=== PATIENT | female | born 1990 | race Caucasian/White ===

== ENCOUNTER 2016-08-21 21:41 | Inpatient (IN) | payer MEDICAID ==
[2016-08-21] MEDS ORDERED: STADOL IV PRN (23:07)
[2016-08-21 23:44] LABS: Hematocrit 38.1 % (30.3-42.9); Hemoglobin 12.4 gm/dl (10.1-14.3); Mean Corpuscular HGB Conc 33 % (30-34); Mean Corpuscular Hemoglobin 26 pg (28-32); Mean Corpuscular Volume 81 fl (79-97); Red Blood Count 4.71 M/mm3 (3.65-5.03)
[2016-08-21] MEDS ORDERED: LACTATED RINGERS 1,000 ML IV SCH (23:45)
[2016-08-21 23:54] LABS: Platelet Count 315 K/mm3 (140-440); White Blood Count 22.4 K/mm3 (4.5-11.0)
[2016-08-22 00:12] LABS: Alanine Aminotransferase 8 units/L (7-56)
[2016-08-22] MEDS ORDERED: ePHEDrine SULFATE ONE (00:32)
[2016-08-22] MEDS ORDERED: ePHEDrine SULFATE IV PRN ×2 (01:04→03:52)
[2016-08-22] MEDS ORDERED: NARCAN 2 MG/2 ML IV PRN (01:04)
--- NOTE | 2016-08-22 01:04 | Anesthesia Consultation ---
Anesthesia Consult and Med Hx Date of service: 08/22/16 - Airway Anesthetic Teeth Evaluation: Good ROM Head & Neck: Adequate Mental/Hyoid Distance: Adequate Mallampati Class: Class II Intubation Access Assessment: Probably Good - Cardiac Exam Cardiac Exam: RRR - Pre-Operative Health Status ASA Pre-Surgery Classification: ASA2 Proposed Anesthetic Plan: Epidural - Pulmonary Hx Asthma: Yes (childhood) COPD: No Hx Pneumonia: No - Cardiovascular System Hx Hypertension: No - Central Nervous System Hx Seizures: No Hx Psychiatric Problems: No - Endocrine Hx Renal Disease: No Hx End Stage Renal Disease: No Hx Hypothyroidism: No Hx Hyperthyroidism: No - Hematic Hx Anemia: Yes - Other Systems Hx Alcohol Use: No
[2016-08-22] MEDS ORDERED: fentaNYL-BUPIV 2 MCG/ML-0.125% 200 MCG/100 ML BAG EPIDURAL SCH (02:00)
[2016-08-22] MEDS ORDERED: PITOCin/NS 20 UNIT/1000ML DRIP 20,000 MILLIUNITS/1,000 ML BAG IV ONE (02:24)
--- NOTE | 2016-08-22 02:25 | History and Physical Report ---
History of Present Illness Date of examination: 08/22/16 Date of admission: 08/21/16 23:03 Chief complaint: Intense Labor Pains History of present illness: Early entry to care, co-managed with [facility] due to maternal obesity and a abnormal quad screen (+OSB). Past History Past Medical History: no pertinent history Past Surgical History: no surgical history Family/Genetic History: diabetes (father), hypertension (father), cancer (Father : Liver Ca ) Social history: no significant social history, single - Obstetrical History Expected Date of Delivery: 08/26/16 Actual Gestation: 39 Week(s) 3 Day(s) : 1 Medications and Allergies Allergies Allergy/AdvReac Type Severity Reaction Status Date / Time No Known Allergies Allergy Unverified 08/21/16 22:03 Active Meds: Active Medications Butorphanol Tartrate (Stadol) 2 mg IV Q2H PRN PRN Reason: Labor Pain Last Admin: 08/21/16 23:48 Dose: 2 mg Lactated Ringer's (Lactated Ringers) 1,000 mls @ 125 mls/hr IV DIRECT AGUEDA Last Admin: 08/21/16 23:49 Dose: 125 mls/hr Fentanyl/Bupivacaine/Sodium Chlor (Fentanyl-Bupiv 2 Mcg/Ml-0.125%) 200 mcg in 100 mls @ 12 mls/hr EPIDURAL TITR AGUEDA PRN Reason: Protocol Last Admin: 08/22/16 02:01 Dose: 12 mls/hr - Vital Signs Vital signs: Vital Signs Pulse Pulse Ox 147 H 80 L 08/21/16 21:50 08/21/16 21:50 Temp Pulse Resp BP Pulse Ox 97.4 F L 90 20 132/65 98 08/21/16 23:35 08/22/16 02:12 08/21/16 23:48 08/22/16 02:04 08/22/16 02:12 - Physical Exam Breasts: Positive: normal Cardiovascular: Regular rate Lungs: Positive: Clear to auscultation, Normal air movement Abdomen: Positive: normal appearance, soft, normal bowel sounds Genitourinary (Female): Positive: normal external genitalia, normal perenium Vagina: Positive: normal moisture Uterus: Positive: enlarged Anus/Rectum: Positive: normal perianal skin - Obstetrical FHR: category 1 Uterine Contraction Monitor Mode: External Cervical Dilatation: 9 (No fluid return upon AROM at 0214) Cervical Effacement Percentage: 100 station: +1 Uterine Contraction Pattern: Regular Uterine Tone Measurement Phase: Contraction Uterine Contraction Intensity: Moderate Results Result Diagrams: 08/21/16 23:35 08/21/16 23:35 Abnormal lab results 08/21/16 08/21/16 Range/Units 23:35 23:35 WBC 22.4 H (4.5-11.0) K/mm3 MCH 26 L (28-32) pg RDW 16.0 H (13.2-15.2) % Creatinine 0.6 L (0.7-1.2) mg/dL All other labs normal. Assessment and Plan A: IUP at 39 3/7 Weeks Category I Tracing Active Labor Maternal Obesity GBS Negative P: Admit to L&D per Routine Orders AROM
[2016-08-22] MEDS ORDERED: MINERAL OIL ONE (02:46)
[2016-08-22 03:50] LABS: Mucus,Urine FEW /HPF
[2016-08-22] MEDS ORDERED: BRETHINE SUB-Q PRN (03:52)
[2016-08-22] MEDS ORDERED: BRETHINE IVP PRN (03:52)
[2016-08-22] MEDS ORDERED: MINERAL OIL PO PRN (03:52)
[2016-08-22 03:53] LABS: Bilirubin,Urine NEG (Negative); Blood,Urine LG (Negative); Ketones,Urine 80 mg/dL (Negative); Leukocyte Esterase,Urine TR (Negative); Nitrite,Urine NEG (Negative); Urobilinogen,Urine < 2.0 mg/dL (<2.0)
[2016-08-22 03:54] LABS: RBC,Urine > 182.0 /HPF (0.0-6.0)
[2016-08-22] MEDS ORDERED: LANSINOH TP PRN (03:54)
[2016-08-22] MEDS ORDERED: MILK OF MAGNESIA PO PRN (03:54)
[2016-08-22] MEDS ORDERED: PHENERGAN PR PRN (03:54)
[2016-08-22] MEDS ORDERED: DULCOLAX PR PRN (03:54)
[2016-08-22] MEDS ORDERED: BENADRYL PO PRN (03:54)
[2016-08-22] MEDS ORDERED: LACTATED RINGERS 1,000 ML IV SCH (04:00)
[2016-08-22] MEDS ORDERED: SODIUM CHLORIDE FLUSH SYRINGE 10 ML IV NR (04:00)
--- NOTE | 2016-08-22 04:02 | Procedure Note ---
OB Delivery Note - Delivery Date of Delivery: 08/22/16 (0314) Surgeon: RENUKA ASHRAF Estimated blood loss: other (250) - Vaginal Delivery presentation: vertex Delivery position: OA Intrapartum events: none Delivery induction: none Delivery augmentation: rupture of membranes Delivery monitor: external FHT, external uterine Route of delivery: Delivery placenta: spontaneous Delivery cord: 3 umbilical vessels Episiotomy: none Delivery laceration: 2nd degree Delivery repair: vicryl Anesthesia: epidural Delivery comments: of a live 6'9 male infant over a 2nd degree perineal and left labial laceration under epidural with Apgars of 8 and 9 at 0314 on 08/22/2016. Infant directly to maternal abd/chest, skin to skin contact. Spontaneous delivery of placenta complete and intact with [place] side presenting at 0319. Fundus is firm and midline located 4 below the U. Lochia is scant. Perineal laceration and labial laceration repaired with 2-0 Vicryl. Delayed cord clamping and cutting. Cord cut by the father of the baby. Cord blood collected. Placenta discarded. - Infant A at 1 minute: 8 at 5 minutes: 9 Infant Gender: Male (6'9)
[2016-08-22 05:56] LABS: Lactate Dehydrogenase 170 units/L (91-180)
[2016-08-22] MEDS ORDERED: PITOCin/NS 20 UNIT/1000ML DRIP 20 UNITS/1,000 ML BAG IV SCH (06:00)
[2016-08-22] MEDS: DERMOPLAST TP PRN ×2 (07:33→20:24)
[2016-08-22] MEDS: TUCKS PAD TP PRN ×3 (07:33→20:24)
[2016-08-22] MEDS: MOTRIN PO SCH ×2 (08:41→19:21)
[2016-08-22] MEDS ORDERED: PRENATAL VITAMIN PO SCH (10:00)
[2016-08-22 16:32] LABS: Hematocrit 34.5 % (30.3-42.9); Hemoglobin 11.6 gm/dl (10.1-14.3)
[2016-08-22] MEDS: PERCOCET 5/325 PO PRN ×2 (16:57→22:52)
[2016-08-23] MEDS: MOTRIN PO SCH ×2 (01:40→12:10)
[2016-08-23] MEDS: PERCOCET 5/325 PO PRN (09:00)
[2016-08-23 09:36] VITALS: BP 124/76
--- NOTE | 2016-08-23 13:03 | Progress Note ---
Subjective Date of service: 08/23/16 Interval history: 1st day after normal vaginal delivery Patient is in the bed, comfortable. Pain is well controlled with pain meds. Ambulated well. No residual neurological deficit. No anesthesia complications Objective - Constitutional Vitals: Vital Signs - 12hr 08/23/16 08/23/16 08/23/16 04:30 08:49 09:00 Temperature 98.6 F 98.2 F Pulse Rate [ 77 112 H Left From Monitor] Respiratory 22 20 20 Rate Blood Pressure 126/81 124/76 [Left Arm] - Labs CBC & Chem 7: 08/22/16 15:04 08/21/16 23:35
--- NOTE | 2016-08-23 14:19 | Progress Note ---
Assessment and Plan A. PP Day #1 Normal course Plans OCP for contraception P DC home F/U 6 wk pp Subjective - Subjective Date of service: 08/23/16 (PP Day #1: S/O , 2e degree lac) Patient reports: appetite normal, voiding normally, pain well controlled, ambulating normally : nursing well Objective - Vital Signs Latest vital signs: Vital Signs Temp Pulse Resp BP 08/23/16 09:00 20 08/23/16 08:49 98.2 F 112 H 20 124/76 08/23/16 04:30 98.6 F 77 22 126/81 08/23/16 00:00 98.6 F 72 22 122/70 08/22/16 19:30 98.6 F 72 22 138/72 08/22/16 16:55 98.2 F 100 H 20 120/62 Intake and Output 08/22/16 08/23/16 08/23/16 22:59 06:59 14:59 Intake Total 360 650 Balance 360 650 Intake: Oral 360 400 Intake, Free Water 250 Other: Total, Intake Amount 360 400 # Voids Void 1 - Exam Breasts: Present: normal Cardiovascular: Present: Regular rate Lungs: Present: Normal air movement Abdomen: Present: normal appearance, soft Vulva: both: normal Uterus: Present: firm, fundal height above umbilicus Extremities: Present: normal
--- NOTE | 2016-08-23 14:29 | Discharge Summary ---
Providers - Providers Date of Admission: 08/21/16 23:03 Date of discharge: 08/23/16 Attending physician: RUBEN RYAN MD Primary care physician: RUBEN RYAN MD Hospitalization Delivery: Episiotomy: none Laceration: 2nd degree Other procedures: none complications: none Discharge diagnosis: IUP at term delivered [place] baby: male Condition at discharge: Good Disposition: DISCHARGED TO HOME OR SELFCARE Plan - Provider Discharge Summary Activity: no sex for 6 weeks, no heavy lifting 4 weeks, no strenuous exercise Diet: routine Instructions: routine Additional instructions: [] Smoking cessation referral if applicable(refer to patient education folder for contact #) [] Refer to [facility] Booklet Call your doctor immediately for: * Fever > 100.5 * Heavy vaginal bleeding ( >1 pad per hour) * Severe persistent headache * Shortness of breath * Reddened, hot, painful area to leg or breast * Drainage or odor from incision. * Keep incision clean and dry at all times and follow doctor's instructions regarding bathing/showering - Follow up plan Follow up: RUBEN CARLISLE MD [Primary Care Provider] - RENUKA ASHRAF CNM [Advanced Practice Nurse] - 6 Weeks
== END 2016-08-23 16:30 | disposition home or self-care (01) | DRG 775 ==
LOC: TRG 21:41 → LD 23:03 → OB 08-22 05:17
PROVIDERS: ADMIT Obstetrics & Gynecology; ATTEND Obstetrics & Gynecology
PROC: 0KQM0ZZ Repair Perineum Muscle, Open Approach (ICD-10-PCS; principal; 2016-08-22)
PROC: 00HU33Z Insertion of Infusion Device into Spinal Canal, Percutaneous Approach (ICD-10-PCS; principal; 2016-08-22)
PROC: 10907ZC Drainage of Amniotic Fluid, Therapeutic from Products of Conception, Via Natural or Artificial Opening (ICD-10-PCS; principal; 2016-08-22)
PROC: 10E0XZZ Delivery of Products of Conception, External Approach (ICD-10-PCS; principal; 2016-08-22)
PROC: 3E0S3CZ (ICD-10-PCS; principal; 2016-08-22)
DX: O99.214 Obesity complicating childbirth (principal); O70.1 Second degree perineal laceration during delivery; Z37.0 Single live birth; Z3A.39 39 weeks gestation of pregnancy; Z80.9 Family history of malignant neoplasm, unspecified; Z83.3 Family history of diabetes mellitus; Z82.49 Family history of ischemic heart disease and other diseases of the circulatory system
CPT/HCPCS: 36415; 81001; 82565; 83615; 84450; 84460; 84550; 85014; 85018; 85027; 99211; G0463; J0595; J2590; J7120